=== PATIENT | male | born 1940 | race Caucasian/White ===

== ENCOUNTER → 2023-10-11 07:43 | Outpatient (REF) | payer MEDICARE, OTHER, SELFPAY | LOC: EMG 07:43 | PROVIDERS: ATTENDING PHYSICIAN Family Medicine | DX: S04 Injury of cranial nerve (principal); R20.0 Anesthesia of skin; R20.2 Paresthesia of skin | CPT/HCPCS: 95886; 95910 ==

== ENCOUNTER → 2023-10-15 06:52 | Outpatient (REF) | payer MEDICARE, OTHER, SELFPAY | LOC: MRI 3T 06:52 | PROVIDERS: ATTENDING PHYSICIAN Family Medicine | DX: S04 Injury of cranial nerve (principal) | CPT/HCPCS: 70551 ==

== ENCOUNTER → 2024-01-18 07:59 | Outpatient (REF) | payer MEDICARE, OTHER, SELFPAY ==
[2024-01-18 09:59] LABS: Hematocrit 43.2 % (39.0-52.0); Hemoglobin 14.6 g/dL (13.0-18.0); Mean Corp Hgb Conc. 33.8 g/dL (33.0-37.0); Mean Corpuscular Hgb 29.1 pg (27.0-31.0); Mean Corpuscular Volume 86.1 fL (80.0-94.0); Mean Platelet Volume 10.6 fL (7.4-10.4); Platelet Count 262 10^3/uL (130-400); Red Blood Cell Count 5.02 10^6/uL (4.70-6.10); Red Cell Dist. Width 12.6 % (11.5-14.5); White Blood Cell Count 8.9 10^3/uL (4.8-10.8)
[2024-01-18 10:22] LABS: ALT (SGPT) 20 U/L (0-50); AST (SGOT) 30 U/L (17-59); Albumin 4.3 g/dl (3.5-5.0); Alkaline Phosphatase 85 U/L (38-126); Blood Urea Nitrogen 18 mg/dl (9-20); Calcium 9.7 mg/dl (8.4-10.2); Carbon Dioxide 26 mmol/L (22-30); Chloride 104 mmol/L (98-107); Glucose 103 mg/dl (70-99); Potassium 4.6 mmol/L (3.5-5.1); Sodium 139 mmol/L (135-145); Total Bilirubin 1.3 mg/dl (0.2-1.3); Total Protein 7.3 g/dl (6.3-8.2); eGFR > 60.00
== END ==
LOC: SDSPAT 07:59
PROVIDERS: ATTENDING PHYSICIAN Otolaryngology; FAMILY PHYSICIAN Family Medicine
DX: Z01.818 Encounter for other preprocedural examination (principal)
CPT/HCPCS: 36415; 71046; 80053; 85027; 93005

== ENCOUNTER 2024-01-27 06:22 | Day surgery (SDC) | payer MEDICARE, OTHER, SELFPAY ==
[2024-01-18 08:34] VITALS: BMI 23.2
[2024-01-27] VITALS (8 sets, daily range): BP systolic 108–168; BP diastolic 76–98; BMI 23.2
[2024-01-27] MEDS: NORMOSOL-R 1000 IV (08:26)
== END 2024-01-27 11:53 | disposition home or self-care (01) ==
LOC: SDS 06:22
PROVIDERS: ATTENDING PHYSICIAN Otolaryngology
DX: J38.01 Paralysis of vocal cords and larynx, unilateral (principal); R49.0 Dysphonia
CPT/HCPCS: 31571; C1878

== ENCOUNTER → 2024-02-25 07:49 | Outpatient (REF) | payer MEDICARE, OTHER, SELFPAY | LOC: HWRAD 07:49 | PROVIDERS: ATTENDING PHYSICIAN Internal Medicine; FAMILY PHYSICIAN Family Medicine | DX: M81.0 Age-related osteoporosis without current pathological fracture (principal) | CPT/HCPCS: 77080; 77081 ==

== ENCOUNTER → 2024-07-12 06:44 | Outpatient (REF) | payer MEDICARE, OTHER, SELFPAY ==
[2024-07-12 08:51] LABS: Hematocrit 39.4 % (39.0-52.0); Mean Corpuscular Volume 87.8 fL (80.0-94.0); Mean Platelet Volume 9.7 fL (7.4-10.4); Platelet Count 307 10^3/uL (130-400); Red Blood Cell Count 4.49 10^6/uL (4.70-6.10); White Blood Cell Count 11.2 10^3/uL (4.8-10.8)
[2024-07-12 09:07] LABS: Blood Urea Nitrogen 25 mg/dl (9-20); Calcium 9.5 mg/dl (8.4-10.2); Carbon Dioxide 25 mmol/L (22-30); Chloride 103 mmol/L (98-107); Glucose 102 mg/dl (70-99); Potassium 4.6 mmol/L (3.5-5.1); Sodium 139 mmol/L (135-145); eGFR > 60.00
== END ==
LOC: SDSPAT 06:44
PROVIDERS: ATTENDING PHYSICIAN Specialist; FAMILY PHYSICIAN Family Medicine
DX: Z01.818 Encounter for other preprocedural examination (principal)
CPT/HCPCS: 36415; 80048; 85027

== ENCOUNTER 2024-07-13 06:20 | Day surgery (SDC) | payer MEDICARE, OTHER, SELFPAY ==
[2024-07-12 12:14] VITALS: BMI 23.2
[2024-07-13] VITALS (12 sets, daily range): BP systolic 142–181; BP diastolic 76–96; BMI 23.2
[2024-07-13] MEDS: NORMOSOL-R/PLASMALYTE-A 1000 IV (06:46)
== END 2024-07-13 10:53 | disposition home or self-care (01) ==
LOC: SDS 06:20
PROVIDERS: ATTENDING PHYSICIAN Specialist; FAMILY PHYSICIAN Family Medicine
DX: N43.3 Hydrocele, unspecified (principal); N45.3 Epididymo-orchitis
CPT/HCPCS: 54520; 88302; 88305

== ENCOUNTER → 2025-03-12 06:47 | Outpatient (REF) | payer MEDICARE, OTHER, SELFPAY ==
[2025-03-12 08:01] LABS: Hematocrit 43.4 % (39.0-52.0); Hemoglobin 14.1 g/dL (13.0-18.0); Mean Corp Hgb Conc. 32.5 g/dL (33.0-37.0); Mean Corpuscular Volume 89.7 fL (80.0-94.0); Nucleated Red Blood Cells % 0 % (-); Platelet Count 244 10^3/uL (130-400); Red Cell Dist. Width 12.8 % (11.5-14.5)
[2025-03-12 08:19] LABS: ALT (SGPT) 20 U/L (0-50); AST (SGOT) 26 U/L (17-59); Albumin 4.4 g/dl (3.5-5.0); Alkaline Phosphatase 67 U/L (38-126); Blood Urea Nitrogen 17 mg/dl (9-20); Calcium 9.6 mg/dl (8.4-10.2); Carbon Dioxide 26 mmol/L (22-30); Chloride 106 mmol/L (98-107); Glucose 107 mg/dl (70-99); HDL Cholesterol 48 mg/dl; LDL Cholesterol, Calculated 62 mg/dl; Potassium 4.7 mmol/L (3.5-5.1); Sodium 141 mmol/L (135-145); Total Protein 7.3 g/dl (6.3-8.2); Very Low Density Lipoprotein 25 mg/dl (0-30); eGFR > 60.00
== END ==
LOC: REG 06:47
PROVIDERS: ATTENDING PHYSICIAN Family Medicine
DX: I10 Essential (primary) hypertension (principal); E78.00 Pure hypercholesterolemia, unspecified; Z86.73 Personal history of transient ischemic attack (TIA), and cerebral infarction without residual deficits; Z87.19 Personal history of other diseases of the digestive system
CPT/HCPCS: 36415; 80053; 80061; 85025